=== PATIENT | male | born 2000 | race Two or more races ===

== ENCOUNTER 2024-04-24 22:10 | Emergency (ER) | payer MEDICAID, SELFPAY ==
[2024-04-24 23:00] VITALS: BP 162/99; PULSE 101; RESP 18; TEMP 37.2; O2SAT 97
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
== END 2024-04-25 09:23 ==
PROVIDERS: Emergency Provider Emergency Medicine
DX: Z02.89 Encounter for other administrative examinations (principal); S00.91XA Abrasion of unspecified part of head, initial encounter; V89.2XXA Person injured in unspecified motor-vehicle accident, traffic, initial encounter
CPT/HCPCS: 99281